=== PATIENT | male | born 1975 | race Caucasian/White ===

== ENCOUNTER → 2017-08-03 | Emergency (ER) | payer BC ==
[~2017-08-03] VITALS: Ht 175.3 cm; Wt 88.5 kg
== END | disposition home or self-care (01) ==
LOC: ER 08:36
DX: H92.01 Otalgia, right ear (principal)

== ENCOUNTER 2018-10-22 21:31 | Emergency (ER) | payer BC ==
[~2018-10-22] VITALS: Ht 185.4 cm; Wt 95.3 kg
== END 2018-10-22 22:55 | disposition home or self-care (01) ==
LOC: ER 21:31
DX: H66.91 Otitis media, unspecified, right ear (principal)

== ENCOUNTER 2019-08-01 08:50 | Inpatient (IN) | payer OTHER ==
[~2019-08-01] VITALS: Ht 170.2 cm; Wt 93.0 kg
[2019-08-04] MEDS ORDERED: CIPROFLOXACIN500 MG PO (17:37)
[2019-08-04] MEDS ORDERED: PEPCID AC20 MG PO (17:37)
[2019-08-04] MEDS ORDERED: FLAGYL500MG PO (17:37)
== END 2019-08-04 19:23 | disposition home or self-care (01) | DRG 392 ==
LOC: ER 08:50 → MEDJ 19:26
PROVIDERS: ADMIT Student in an Organized Health Care Education/Training Program
PROC: BW21Y0Z Computerized Tomography (CT Scan) of Abdomen and Pelvis using Other Contrast, Unenhanced and Enhanced (ICD-10-PCS; principal; 2019-08-01)
DX: K57.32 Diverticulitis of large intestine without perforation or abscess without bleeding (principal); R10.32 Left lower quadrant pain

== ENCOUNTER → 2019-09-22 | Outpatient (CLI) | payer OTHER ==
[~2019-09-22] MED LIST: CIPROFLOXACIN500 MG PO; FLAGYL500MG PO; PEPCID AC20 MG PO
== END | disposition home or self-care (01) ==
LOC: RAD 10:49
DX: M54.5 Low back pain (principal); M54.6 Pain in thoracic spine

== ENCOUNTER 2019-11-08 15:02 | Emergency (ER) | payer OTHER ==
[~2019-11-08] VITALS: Ht 185.4 cm; Wt 86.2 kg
== END 2019-11-08 22:43 | disposition home or self-care (01) ==
LOC: ER 15:02
DX: K57.32 Diverticulitis of large intestine without perforation or abscess without bleeding (principal)

== ENCOUNTER 2020-07-17 11:49 | Emergency (ER) | payer OTHER ==
[~2020-07-17] VITALS: Ht 185.4 cm; Wt 82.6 kg
== END 2020-07-17 16:04 | disposition home or self-care (01) ==
LOC: ER 11:49
DX: M79.18 Myalgia, other site (principal); S93.491S Sprain of other ligament of right ankle, sequela; S13.8XXS Sprain of joints and ligaments of other parts of neck, sequela; X50.1XXS Overexertion from prolonged static or awkward postures, sequela